=== PATIENT | female | born 1975 | race African-American/Black ===

== ENCOUNTER → 2017-08-07 | Outpatient (CLI) | payer OTHER, MEDICAID ==
[~2017-08-07] MED LIST: GADOBUTROL 10 ML VIAL IVP ONE
== END ==
LOC: FIMAGING 10:09
PROVIDERS: ATTEND Internal Medicine Infectious Disease
DX: M51.37 Other intervertebral disc degeneration, lumbosacral region (principal); M51.27 Other intervertebral disc displacement, lumbosacral region
CPT/HCPCS: 72158; A9585

== ENCOUNTER → 2018-06-17 | Outpatient (CLI) | payer OTHER, MEDICAID | LOC: FIMAGING 08:13 | PROVIDERS: ATTEND Internal Medicine Infectious Disease | DX: R51 Headache (principal); M54.5 Low back pain; M25.551 Pain in right hip; V89.2XXA Person injured in unspecified motor-vehicle accident, traffic, initial encounter; A02.9 Salmonella infection, unspecified ==

== ENCOUNTER → 2018-07-12 | Outpatient (CLI) | payer OTHER, MEDICAID ==
[~2018-07-12] MED LIST changes: -GADOBUTROL 10 ML VIAL IVP ONE; +IOPAMIDOL (ISOVUE-300) 100 ML BTL ONE
== END ==
LOC: FIMAGING 10:26
PROVIDERS: ATTEND Internal Medicine Infectious Disease
DX: R10.13 Epigastric pain (principal); R16.0 Hepatomegaly, not elsewhere classified; D73.9 Disease of spleen, unspecified; Z97.5 Presence of (intrauterine) contraceptive device
CPT/HCPCS: 74177; Q9967